=== PATIENT | female | born 1960 | race Caucasian/White ===

== ENCOUNTER → 2017-02-18 | Outpatient (CLI) | payer BC ==
[~2017-02-18] MED LIST: ASPI-428 PO; BUPR200T2 PO; DARI15TA PO; DOCU-94 PO; LISI10TA PO; OXYC7.5T65 PO; SIMV10TA2 PO; SIMV5TAB2 PO; SULF800T23 PO; VTMD1000 PO
--- NOTE | 2017-02-18 08:26 | DIAGNOSTIC IMAGING REPORT ---
CT LUNG SCREENING, LOW DOSE WITH COMPUTER-AIDED DETECTION (CAD) CLINICAL HISTORY: Smoker. COMPARISON STUDY: No previous studies for comparison. CT DOSE: 82.55 mGy.cm TECHNIQUE: Low-dose helical CT was acquired without intravenous contrast from lung apices to bases and reconstructed at 2.5 mm every 2 mm. CAD was utilized for this study. FINDINGS: The central airways are patent. No pleural effusions. No pneumothorax. A 1.5 cm right apical bleb. Mild emphysema. No suspicious lytic or blastic osseous lesions. No significant mediastinal or hilar lymphadenopathy. Cholecystectomy. The visualized liver and spleen are unremarkable. Normal caliber thoracic aorta. The heart is normal in size. There is a subcentimeter nodule within the posterior medial aspect of the right upper lobe on image 100 of 286 as described below. Nodule 1 Category: 2 Nodule 1 Status: Baseline Nodule 1 Description: Solid Nodule 1 Lesion ID: 1 Nodule 1 Slice Number: 94 Nodule 1 Volume (mm3): 25 Nodule 1 Major [place] mm: 5.0 Nodule 1 Minor [place] mm: 2.4 IMPRESSION: 1. Mild emphysema. 2. A single subcentimeter nodule within the right upper lobe. Recommendations as detailed below. CAD FINDINGS: Overall Lung RADS Category: 2 Lung RADS Management Recommendation: Lung-RADS 2: Continue annual screening in 12 months. Lung RADS Follow Up Date: 2018-02-18 Lung RADS Nodule ID: 1 Electronically signed by: Jose Maddox M.D. 02/18/2017 8:24 AM Dictated Date/Time: 02/18/2017 8:17 AM
== END | disposition home or self-care (01) ==
LOC: C.CTS 08:06
PROVIDERS: ATTEND Physician Assistant
DX: Z12.2 Encounter for screening for malignant neoplasm of respiratory organs (principal); F17.200 Nicotine dependence, unspecified, uncomplicated; J43.9 Emphysema, unspecified; R91.1 Solitary pulmonary nodule

== ENCOUNTER → 2017-03-17 | Outpatient (CLI) | payer BC | END | disposition home or self-care (01) | LOC: C.LABSPEC 17:03 | PROVIDERS: ATTEND Nurse Practitioner Adult Health | DX: R32 Unspecified urinary incontinence (principal) ==

== ENCOUNTER 2017-06-26 05:04 | Day surgery (SDC) | payer BC ==
[2017-06-17 10:29] VITALS: BMI 37.0
--- NOTE | 2017-06-17 10:57 | PAT Medication Instructions ---
Service Date Jun 17, 2017. Current Home Medication List Aspirin (Ecotrin Low Strength), 81 MG PO QAM Bupropion (Wellbutrin Sr), 200 MG PO BID Cholecalciferol (Vitamin D3), 1,000 UNITS PO QAM Lisinopril (Prinivil), 10 MG PO QAM Simvastatin (Zocor), 10 MG PO QPM Medication Instructions For Your Scheduled Surgery Aspirin (Ecotrin Low Strength), 81 MG PO QAM (Check with surgeon for instructions) - Hold the following medications the morning of surgery: Cholecalciferol (Vitamin D3), 1,000 UNITS PO QAM Lisinopril (Prinivil), 10 MG PO QAM - Take the following medications the morning of surgery with a sip of water: Bupropion (Wellbutrin Sr), 200 MG PO BID - Take the following medications as scheduled the night before surgery: Simvastatin (Zocor), 10 MG PO QPM Bupropion (Wellbutrin Sr), 200 MG PO BID If you have any questions please call us at [phone] or [phone] or [phone]
[2017-06-17 12:30] LABS: BASO % 0.8 %; BASO ABS # 0.05 K/uL (0-0.2); COMPLETE YES; EOS % 2.2 %; HEMATOCRIT 42.5 % (37-47); IG% 0.2 %; LYMPH % 34.6 %; LYMPH ABS # 2.24 K/uL (1.2-3.4); MEAN CELL VOLUME 93.8 fL (80-100); MEAN CORPUSCULAR HEMOGLOBIN 32.2 pg (25-34); MEAN CORPUSCULAR HGB CONC 34.4 g/dl (32-36); MEAN PLATELET VOLUME 11.1 fL (7.4-10.4); MONO % 9.1 %; NEUT % 53.1 %; PLATELET COUNT 250 K/uL (130-400); RED BLOOD COUNT 4.53 M/uL (4.2-5.4); WHITE BLOOD COUNT 6.48 K/uL (4.8-10.8)
[2017-06-17 12:44] LABS: URINE APPEARANCE CLEAR (CLEAR); URINE BILIRUBIN NEG (NEG); URINE COLOR YELLOW; URINE NITRITE NEG (NEG); URINE PH 6.5 (4.5-7.5); URINE SPECIFIC GRAVITY 1.022 (1.000-1.030); UROBILINOGEN NEG (NEG)
[2017-06-17 12:54] LABS: MANUAL MICROSCOPIC REQUIRED? NO; REVIEW REQ? NO
[2017-06-17 13:41] LABS: BUN/CREATININE RATIO 12.5 (10-20); CALCIUM 9.3 mg/dl (8.5-10.1); CREATININE 1.1 mg/dl (0.60-1.20); POTASSIUM 4.6 mmol/L (3.5-5.1)
[~2017-06-26] VITALS: Ht 162.6 cm; Wt 99.7 kg
[~2017-06-26 05:04] MED LIST changes: -DARI15TA PO; -DOCU-94 PO; -OXYC7.5T65 PO; -SIMV5TAB2 PO; -SULF800T23 PO
[2017-06-26 05:43] VITALS: BP 124/78; PULSE 78; TEMP 36.5; O2SAT 95; Ht 162.6 cm; Wt 99.7 kg
[2017-06-26] MEDS ORDERED: CIPROFLOXACIN / D5W 400 MG IV SCH (06:00)
[2017-06-26] MEDS ORDERED: LACTATED RINGER'S 1000ML 1,000 ML IV SCH (06:00)
[2017-06-26] MEDS ORDERED: LIDOCAINE HCL 2% 2 ML VIAL (20MG/ML) ONE (06:39)
[2017-06-26] MEDS ORDERED: FENTANYL CITRATE INJ 50 MCG/1 ML 2 ML VIAL ONE (06:39)
[2017-06-26] MEDS ORDERED: DEXAMETHASONE SOD INJ 4 MG/ML VIAL ONE (06:39)
[2017-06-26] MEDS ORDERED: PROPOFOL IV EMULSION 10 MG/ML 20 ML VIAL IV ONE (06:39)
[2017-06-26] MEDS ORDERED: MIDAZOLAM HCL 1 MG/ML 2ML VIAL ONE (06:39)
[2017-06-26] MEDS ORDERED: ONDANSETRON INJ 2 MG/ML 2 ML VIAL ONE (06:39)
[2017-06-26] MEDS ORDERED: BACITRACIN 50000 UNIT VIAL ONE (07:02)
[2017-06-26] MEDS ORDERED: BUPIVACAINE/EPINEPHRINE 0.5% MPF 1:200,000 10 ML VIAL ONE (07:02)
[2017-06-26] MEDS ORDERED: CLINDAMYCIN PHOS 2% VAG CR 40 GM TUBE ONE (07:03)
--- NOTE | 2017-06-26 07:05 | History & Physical Bridge Note ---
H&P Re-Evaluation Bridge Note: I have examined the patient, reviewed the History & Physical and in the interval since the performance of the History & Physical I have noted the following changes of clinical significance: No changes noted
[2017-06-26] MEDS ORDERED: ONDANSETRON INJ 2 MG/ML 2 ML VIAL IV PRN (07:15)
[2017-06-26] MEDS ORDERED: EpHEDrine SULFATE INJ 50 MG/ML AMP IV PRN (07:15)
[2017-06-26] MEDS ORDERED: ATROPINE SULFATE 0.1 MG/ML 5ML SYR IV PRN (07:15)
[2017-06-26] MEDS: FENTANYL CITRATE INJ 50 MCG/1 ML 2 ML VIAL IV PRN ×2 (09:06→09:15)
[2017-06-26] MEDS ORDERED: OXYC7.5T65 PO (09:25)
[2017-06-26] MEDS ORDERED: SULF800T23 PO (09:25)
[2017-06-26] MEDS ORDERED: DOCU-94 PO (09:25)
--- NOTE | 2017-06-26 09:29 | Discharge Instructions ---
Discharge Instructions Date of Service Jun 26, 2017. Admission Reason for Admission: Stress Urinary Incontinence Discharge Discharge Diagnosis / Problem: AP s/p transobturator midurethral sling Discharge Goals Goal(s): Improve function, Increase independence, Therapeutic intervention Activity Recommendations Activity Limitations: as noted below Lifting Limitations: no more than 25 pounds (x 4-6 weeks) Exercise/Sports Limitations: until after follow-up appointment (light activity x 4-6 weeks) Driving or Machine Use: resume 3 days after discharge . Instructions / Follow-Up Instructions / Follow-Up As scheduled in office Vaginal bleeding expected Discharge Diet Recommended Diet: Regular Diet (good fluid intake) Procedures Procedures Performed: Midurethral Sling, Cystoscopy Pending Studies Studies pending at discharge: no Medical Emergencies . Who to Call and When: Medical Emergencies: If at any time you feel your situation is an emergency, please call 911 immediately. . Non-Emergent Contact Non-Emergency issues call your: Urologist Call Non-Emergent contact if: you have a fever, temperature is above 101, your pain is not controlled, your pain is worsening, your pain is unusual for you, your pain is concerning you, wound has increased drainage, wound has increased pain, you have any medication questions . . "Provider Documentation" section prepared by Cuauhtemoc Moore. . VTE Core Measure Inpt VTE Proph given/why not?: SCD's [place] Drug Monitoring Program Search Results: patient reviewed within database, no issues identified
[2017-06-26] MEDS ORDERED: OXYCODONE/ACETAMINOPHEN 5-325 TAB PO PRN (09:30)
--- NOTE | 2017-06-26 09:32 | [facility] Operative Report ---
Operative Report Operative Date Jun 26, 2017. Pre-Operative Diagnosis Stress incontinence; urinary incontinence Post-Operative Diagnosis Same as preop Procedure(s) Performed Midurethral Sling, transobturator approach, Cystoscopy Surgeon Dr. John Moore Crown Wheel Assembler Surgeon(s) NA Estimated Blood Loss 20 cc Findings Excellent sling position, no bladder injury on cysto after each trochar pass, + cystocoele Specimens None, as per surgeon Drains NA Anesthesia GALMA + local Complication(s) None Disposition Recovery Room / PACU Indications Pleasant 57-year-old female with a history of stress urinary incontinence verified on office examination and cystoscopy here for mid urethral sling with the trans-obturator approach. Please see H&P for further details. Intravenous ciprofloxacin provided for at about a coverage and SCDs used for DVT prophylaxis. Consent reviewed preoperatively with the patient today. Description of Procedure Patient was properly identified and brought to the operating room after identification of appropriate consent in the chart. Full timeout procedure was followed. General anesthesia with laryngeal mask was initiated. Patient was prepped and draped in the standard fashion for this procedure, that is in a dorsal lithotomy position. Weighted vaginal speculum was used for exposure. 20 fr caruso was placed and bladder regularly drained throughout the procedure. Allis clamp was placed on the meatus and suburethral vaginal mucosa was instilled with local with epinephrine. This was divided in the midline and dissected laterally following the vaginal mucosa to the vaginal side wall, allowing for passage of the surgeon's finger. Skin incisions were made after instilling local at the anterior aspect of the obturator foramen, at the level of the clitoris. Transobturator kit trochars were used outside in and passed onto the surgeon's finger through the vaginal incision. Antibiotic soaked mesh was engaged in the trochar and passed into the appropriate position. Cystoscopy using 70 degree lens was performed showing a grade 1-2 cystocoele, some squamous metaplasia with no tumor, stones or other lesions. No evidence of bladder injury from trochar passage on careful inspection was noted. This was repeated on the contralateral side with repeat cystoscopy and no injury noted. Caurso was replaced and bladder was drained. Sling was appropriately tensioned over Hernandez scissors, tension free suburethral position. Tensioning sutures were removed and sling cut flush with the obturator skin incisions. A small buttonhole of the right vaginal was closed without involving the mesh after correction of the path of the trochar with 0 vicryl suture. Vaginal incision was closed with a 2-0 Vicryl suture avoiding entrapping the sling material. Wounds were generously flushed with irrigant. Skin incisions closed with Dermabond. Vaginal packing with Clindamycin was placed. Bladder was again drained then caruso was removed. Anesthesia was reversed and patient was transferred to recovery in stable condition. DC instructions - sent with pain meds, Colace and antibiotics. Postop appointments confirmed. Patient to contact our service with any questions or concerns. I attest to the content of the Intraoperative Record and any orders documented therein. Any exceptions are noted below.
--- NOTE | 2017-06-26 09:37 | Anesthesiology Progress Note ---
Anesthesia Post Op Note Date & Time Jun 26, 2017 at 09:37 Vital Signs Pain Intensity: 4 Vital Signs Past 12 Hours Date Time Temp Pulse Resp B/P (MAP) Pulse Ox O2 Delivery O2 Flow Rate FiO2 06/26/17 09:25 77 13 106/77 92 Room Air 06/26/17 09:15 80 14 111/90 94 Room Air 06/26/17 09:05 78 15 116/80 94 Room Air 06/26/17 08:55 78 18 116/86 99 Oxymask 10 06/26/17 08:45 80 18 126/87 99 Oxymask 10 06/26/17 08:35 36.7 82 18 125/82 100 Oxymask 10 06/26/17 05:43 36.5 78 20 124/78 (93) 95 Room Air Notes Mental Status: alert / awake / arousable, participated in evaluation Pt Amnestic to Procedure: Yes Nausea / Vomiting: adequately controlled Pain: adequately controlled Airway Patency, RR, SpO2: stable & adequate BP & HR: stable & adequate Hydration State: stable & adequate Anesthetic Complications: no major complications apparent
[2017-06-26 11:40] VITALS: BP 98/69; PULSE 75; TEMP 36.8; O2SAT 94
[2017-06-26 12:40] VITALS: BP 116/74; PULSE 73; TEMP 36.9; O2SAT 97
== END 2017-06-26 13:10 | disposition home or self-care (01) ==
LOC: C.ACU 05:04
PROVIDERS: ATTEND Urology
DX: N39.3 Stress incontinence (female) (male) (principal); I10 Essential (primary) hypertension; E78.00 Pure hypercholesterolemia, unspecified; F17.200 Nicotine dependence, unspecified, uncomplicated; Z79.82 Long term (current) use of aspirin; Z79.899 Other long term (current) drug therapy

== ENCOUNTER → 2017-07-09 | Outpatient (CLI) | payer BC ==
[~2017-07-09] MED LIST changes: +DOCU-94 PO; +OXYC7.5T65 PO; +SULF800T23 PO
== END | disposition home or self-care (01) ==
LOC: C.LABSPEC 17:35
PROVIDERS: ATTEND Urology
DX: R32 Unspecified urinary incontinence (principal)